=== PATIENT | male | born 1985 | race Caucasian/White ===

== ENCOUNTER 2024-01-27 07:42 | Emergency (ER) | payer BC, SELFPAY ==
[2024-01-27 07:53] VITALS: BP 151/85; PULSE 55; RESP 18; TEMP 36.8; O2SAT 98; BMI 39.5
--- NOTE | 2024-01-27 08:12 | ED_ITS ---
HPI - Wound/Laceration General Chief Complaint: Wound/Laceration Stated Complaint: L hand thumb laceration Time Seen by Provider: 01/27/24 07:48 Source: patient Mode of arrival: ambulatory Limitations: no limitations History of Present Illness HPI narrative: Patient is a 38-year-old male right-hand dominant who presents emergency department for evaluation of an accidental laceration to the palmar aspect of his left thumb. Reports he was cutting a bagel with a kitchen knife, denies accidentally pushed through the bagel resulting in a laceration to his thumb. No active bleeding, denies use of anticoagulants or known coagulation disorders. Unaware of the date of his last tetanus vaccination. Related Data Allergies Allergy/AdvReac Type Severity Reaction Status Date / Time No Known Allergies Allergy Verified 01/27/24 07:58 Review of Systems Review of Systems: Yes all other systems are reviewed and are negative ON LICENSE OF [facility] Past Medical History Attestation statement: The following information was validated with the patient. Source: old records reviewed Social History Social History Advance Directives: No Advance Directives Information Provided: No Do you have a plan to hurt others: No Plan Physical Exam Vital Signs: Vital Signs: Last Vital Signs Temp 98.3 F 01/27/24 09:09 Pulse 55 01/27/24 09:09 Resp 18 01/27/24 09:09 BP 151/85 H 01/27/24 09:09 Pulse Ox 98 01/27/24 09:09 O2 Del Method Room Air 01/27/24 09:09 BMI result Body Mass Index 39.5 Appearance: Alert.?Oriented to person, place and time. No acute distress.?Normal affect. CVS: Heart sounds normal. Normal heart rate and rhythm.? Pulses normal.?? Respiratory: No respiratory distress.? Lung sounds clear to auscultation bilaterally?? Skin: Skin warm and dry.? Normal skin color.? Palmar aspect of left thumb just below the IP joint a 2 cm linear horizontal laceration with scant amount of subcutaneous tissue exposure Extremities: No extremity edema.? Full range of motion to thumb Neuro: Moves all extremities spontaneously. Sensation intact bilaterally. Ambulates with normal steady gait. Medications Administered Discontinued Medications Generic Name Dose Route Start Last Admin Trade Name Freq PRN Reason Stop Dose Admin Diphtheria/Tetanus/Acell Pertussis 0.5 ml 01/27/24 08:21 01/27/24 08:46 Diphth,Pertus(Acell),Tet Adult 0.5 Ml Syringe IM 01/27/24 08:22 0.5 ml .ONCE ONE Administration Lidocaine HCl 5 ml 01/27/24 08:20 01/27/24 08:46 Lidocaine Hcl 1 % Mpf 5 Ml Vial SUBCUT 01/27/24 08:21 5 ml ONCE ONE Administration Medical Decision Making Medical Decision Making [facility] Narrative: Patient is a 38-year-old male presents emergency department for evaluation of accidental laceration to the left thumb as per HPI. He is right-hand dominant. The extremity is neurovascularly intact distally, has full range of motion to the thumb. Bleeding is controlled. The laceration was irrigated extensively with normal saline and Betadine, was repaired under aseptic technique as per procedural portion of this note, 2 sutures were placed in tolerated well with digital block. Advised worrisome signs and symptoms that would warrant re- evaluation, recommended outpatient follow-up and suture removal. His tetanus vaccination was updated today. All questions were answered and he was deemed stable for discharge Differential Diagnosis Differential Diagnoses: The differential diagnosis associated with the presentation includes (See narrative above; laceration, unlikely to have retained foreign body, low suspicion for acute fracture/dislocation, XR imaging was deferred) Independent Historian Clinical information obtained from an independent historian. History obtained from or confirmed by: Spouse (Present who confirms history) Tests considered The following testing was considered but not selected: See narrative above, XR deferred Prescription Management I considered prescription management with: Pain Medication (Acetaminophen/ibuprofen) Procedures Laceration Laceration 1: Site: hand Side (If applicable): left Size (cm): 2 Description: linear Depth: simple, single layer Local Anesthetic: lidocaine 1% Amount of anesthesia used (mL): 2 Pre-repair: wound explored, irrigated extensively and deep structures intact Skin layer closed with: nylon Size (cm): 5-0 Number of sutures: 2 Technique: simple, interrupted Nerve Block Nerve Block 1: Time out performed: Yes Amount of anesthesia used (mL): 2 Side: left Nerve Blocks: digital Procedure Successful: Yes Patient Tolerated Procedure: well Complications: none Discharge Plan Discharge Clinical Impression: Laceration of thumb Qualifiers: Encounter type: initial encounter Damage to nail status: with damage Foreign body presence: without foreign body Laterality: left Qualified Code(s): S61.112A - Laceration without foreign body of left thumb with damage to nail, initial encounter Patient Disposition: Home, Self-Care Instructions: Finger Laceration (ED) Additional Instructions: Sutures will need to be removed in 10-14 days you may return back to emergency department follow-up with your primary care doctor for removal. Has a area gently with warm water mild non scented soap, otherwise keep the area clean and dry, avoid soaking in water for a prolonged period such as with swimming. Your tetanus vaccine was updated today. Follow-up with primary care doctor as needed. You can take ibuprofen 200 mg, 3 tablets (600mg) every 6-8 hours as needed for pain, in addition to Tylenol 500 mg, 2 tablets (1,000mg) every 4-6 hours as needed for pain, but not to exceed 3 doses daily (3,000mg).? Interventions: ED Discharge Assessment Last Done: 01/27/24 09:09 Discharge Date/Time: 01/27/24 09:09 Print Language: [place]
[2024-01-27] MEDS: Lidocaine HCl 1 % MPF 5 ML VIAL SUBCUT (08:46)
[2024-01-27] MEDS: Diphth,Pertus(ACell),Tet Adult 0.5 ML SYRINGE IM (08:46)
[2024-01-27 09:09] VITALS: BP 151/85; PULSE 55; RESP 18; TEMP 36.8; O2SAT 98
== END 2024-01-27 09:09 | disposition home or self-care (01) ==
PROVIDERS: Emergency Provider Emergency Medicine; PCP Psychiatry & Neurology Psychiatry
DX: S61.011A Laceration without foreign body of right thumb without damage to nail, initial encounter (principal); W26.0XXA Contact with knife, initial encounter; Y93.G1 Activity, food preparation and clean up; Y92.009 Unspecified place in unspecified non-institutional (private) residence as the place of occurrence of the external cause; Y99.9 Unspecified external cause status; Z23 Encounter for immunization
CPT/HCPCS: 12001; 90471; 90715; 99282; 99284